=== PATIENT | male | born 2000 | race Caucasian/White ===

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

== ENCOUNTER 2024-02-24 07:22 | Emergency (ER) | payer MEDICAID, OTHER ==
[~2024-02-24] VITALS: Ht 185.4 cm; Wt 113.6 kg
[2024-02-24 07:23] VITALS: BP 138/111; PULSE 114; RESP 18; TEMP 98.3; O2SAT 99
== END 2024-02-24 09:24 | disposition home or self-care (01) ==
LOC: ER 07:24
DX: S30.91XA Unspecified superficial injury of lower back and pelvis, initial encounter (principal); G43.909 Migraine, unspecified, not intractable, without status migrainosus; F32.A Depression, unspecified; F17.200 Nicotine dependence, unspecified, uncomplicated; X58.XXXA Exposure to other specified factors, initial encounter; Y93.89 Activity, other specified; Y92.89 Other specified places as the place of occurrence of the external cause; Y99.8 Other external cause status
CPT/HCPCS: 99281